=== PATIENT | male | born 1955 | race Caucasian/White ===

== ENCOUNTER 2018-05-03 14:22 | Inpatient (IN) | payer OTHER ==
[~2018-05-03] VITALS: Ht 185.4 cm; Wt 93.5 kg
--- NOTE | ~2018-05-03 | EKG ---
[address], [place] ELECTROCARDIOGRAM REPORT NAME: HERIBERTO MARIN UNIT #: [id number] ROOM: [facility] DOCTOR: CRUZ DRAFT REPORT BIRTHDATE: [birth year] [facility] Test Date: 2018-05-04 Test Time: 10:04:11 Pat Name: HERIBERTO MARIN Department: Room: [place] [id number] Gender: M [employer] Operator: Haydee Thomas : 1955 Requested By: MICHELE ROLLINS Order Number: [id number] Reading MD: Gustavo Jara MD Measurements Intervals [place] Rate: 75 P: 52 OR: 135 QRS: -40 QRSD: 126 T: -53 QT: 427 QTc: 477 Interpretive Statements Sinus rhythm Nonspecific IVCD with LAD Inferolateral infarct, old Electronically Signed On 05-04-2018 13:43:50 PST by Gustavo Jara MD CM:EKGRPT:ELECTROCARDIOGRAM REPORT [id number] MICHELE ROLLINS EPIPHANY DRAFT REPORT MICHELE ROLLINS
[2018-05-03 15:33] VITALS: BP 130/88
--- NOTE | 2018-05-03 15:33 | NUR ---
A 62, admitted to ICCU, under the services of AI Craft DO with a diagnosis of ALCOHOL WITHDRAWAL. Chief complaint is TREMORS. Patient arrived via ambulatory from MD. Monitor applied. Initial assessment completed. Vital signs taken and recorded. AI CRAFT DO notified of admission to the unit. Orders received. See assessment for past medical history, medications and allergies. Patient and/or family oriented to unit Clothing/patient valuable form completed. DAV CORONEL
--- NOTE | 2018-05-03 15:37 | NUR ---
PATIENT MEETS [facility], CIWA-AR= 23. PATIENT IS INTERESTED IN RETURNING TO [facility] ONCE DISCHARGED. [facility] SPOKE WITH MARIZA FROM [facility] AND SHE REPORTS THE PATIENT WILL BE ABLE TO RETURN TO [facility] ONCE DISCHARGED. GEORGE HERNANDEZ MS HOME ORGANIZER
[2018-05-03] MEDS ORDERED: COUMADIN7.5 M1 PO (15:51)
[2018-05-03] MEDS ORDERED: WARFARIN SOD5 MG PO (15:52)
[2018-05-03] MEDS ORDERED: ENTRESTO 49 MG1 EACH PO (15:53)
[2018-05-03] MEDS ORDERED: METOPROLOL SUCC25 M2 PO (15:54)
[2018-05-03] MEDS ORDERED: AMIODARONE HYD200 MG PO (15:54)
[2018-05-03] MEDS ORDERED: LASIX20 MG PO (15:55)
--- NOTE | 2018-05-03 15:55 | NUR ---
INFORMED THAT PATIENT IS HAVING SEVERE TREMORS AT THIS TIME AND IS REQUESTED MEDICATION. STATED HE WOULD PLACE AN ORDER.
[2018-05-03] MEDS ORDERED: LIPITOR10 MG PO (15:56)
[2018-05-03] MEDS ORDERED: NEURONTIN300 MG PO (15:56)
[2018-05-03] MEDS ORDERED: CARVEDILOL6.25 MG PO (15:56)
[2018-05-03] MEDS ORDERED: PANTOPRAZOLE SO40 MG PO (15:57)
[2018-05-03] MEDS ORDERED: ASPIRIN CHEWABL81 MG PO (15:57)
[2018-05-03] MEDS ORDERED: NITROGLYCERIN0.4 MG SL (15:58)
[2018-05-03] MEDS ORDERED: SPIRIVA18 MCG PO (15:59)
--- NOTE | 2018-05-03 16:01 | NUR ---
INFORMED THAT MEDS ARE VERIIFED.
[2018-05-03 16:12] LABS: BASO # 0.1 10*3/uL (0.0-0.1); BASO % 0.6 % (0.0-1.0); EOS # 0.1 10*3/uL (0.0-0.4); EOS % 0.8 % (1.0-4.0); HEMATOCRIT 44.5 % (42.0-52.0); HEMOGLOBIN 14.7 g/dl (14.0-18.0); LYMPH # 3.2 10*3/uL (1.3-4.4); LYMPH % 38.4 % (27.0-41.0); MEAN CELL VOLUME 95.9 fl (80.0-94.0); MEAN CORPUSCULAR HGB 31.7 pg (27.0-31.0); MEAN PLATELET VOLUME 9.6 fl (9.6-12.3); MONO # 0.8 10*3/uL (0.1-1.0); MONO % 9.4 % (3.0-9.0); NEUT # 4.2 10*3/uL (2.3-7.9); NEUT % 50.6 % (47.0-73.0); PLATELET COUNT AUTOMATED 255 10*3/uL (130-400); RED BLOOD COUNT 4.64 10*6/uL (4.50-5.90); WHITE BLOOD COUNT 8.4 10*3/uL (4.8-10.8)
[2018-05-03 16:27] LABS: ALBUMIN 3.4 gm/dl (3.1-4.5); ALKALINE PHOSPHATASE 171 U/L (45-117); BUN 18 mg/dl (7-24); CHLORIDE 109 mmol/L (98-107); CREATININE 0.83 mg/dL (0.70-1.30); POTASSIUM 3.9 mmol/L (3.5-5.1); SGOT/AST 26 IU/L (3-35); SGPT/ALT 30 U/L (12-78); SODIUM 141 mmol/L (136-145)
[2018-05-03 16:29] LABS: INTERNATIONAL NORM RATIO 3.4 (2.0-3.5)
--- NOTE | 2018-05-03 16:30 | NUR ---
MEDICATIONS FROM HOME SENT TO PHARMACY
--- NOTE | 2018-05-03 16:31 | NUR ---
IV ATIVAN GIVEN AT THIS TIME FOR DT. WILL MONITOR.
[2018-05-03 16:37] LABS: ETHYL ALCOHOL < 3.0 mg/dl (<3)
--- NOTE | 2018-05-03 16:50 | NUR ---
[facility], REPORT GIVEN TO GABRIELA.
--- NOTE | 2018-05-03 17:00 | NUR ---
Recieved from w/ alcholic withdrawl symptoms. Tremulous on arrival. Co-Operative with care states tyra all day every day and that the longest he has gone w/o alchol is 1 hour , or when he gets arrested and goes to penitentiary. Dr. Kramer here evaulated pt. and orders were recieved.
[2018-05-03 17:03] VITALS: BP 130/83
--- NOTE | 2018-05-03 18:33 | NUR ---
Pt. is requesting neurontin, Dr. Kramer presents and requested that 2200 does be given early , Neurontin and vistaril were given. pt. took supper well and stated that he was going to take a nap. softly snoring after supper and meds.
--- NOTE | 2018-05-03 19:27 | NUR ---
BENTYL ROBAXIN AND STRAIGHT PO ATIVAN GIVEN PER ORDERS.
[2018-05-03 20:00] VITALS: BP 118/70
--- NOTE | 2018-05-03 20:00 | NUR ---
PATIENT STATES PRN MEDS INEFFECTIVE.
[2018-05-03 20:14] LABS: BILIRUBIN NEGATIVE (NEGATIVE); BLOOD NEGATIVE (NEGATIVE); CLARITY CLEAR (CLEAR); COLOR YELLOW (YELLOW); GLUCOSE NEGATIVE (NEGATIVE); KETONE TRACE (NEGATIVE); LEUKO ESTERASE NEGATIVE (NEGATIVE); NITRITE NEGATIVE (NEGATIVE); SPECIFIC GRAVITY 1.025 (1.005-1.030); UROBILINOGEN 0.2 E.U./dl (0.2-1.0)
[2018-05-03 20:24] LABS: URINE AMPHETAMINES < 1000 (1000ng/ml); URINE BARBITURATES < 200 (200ng/ml); URINE BENZODIAZEPINES > 200 (200ng/ml); URINE CANNABINOIDS (THC) < 50 (50ng/ml); URINE COCAINE < 300 (300ng/ml); URINE METHADONE < 300 (300ng/ml); URINE OPIATES < 300 (300ng/ml)
[2018-05-03 20:26] LABS: URINE PHENCYCLIDINE < 25 (25ng/ml)
[2018-05-03 20:32] LABS: BACTERIA TRACE; CALCIUM OXALATE CRYSTALS 2+; MUCOUS 2+; RBC 0-2 rbc/hpf (0-2)
--- NOTE | 2018-05-03 20:59 | NUR ---
MEDICATED WITH IV ATIVAN PER ORDER. PRN TRAZADONE WELL PER REQUEST.
--- NOTE | 2018-05-03 22:00 | NUR ---
ATIVAN TRAZADONE EFFECTIVE.
[2018-05-04] VITALS: BP 95/56
--- NOTE | 2018-05-04 | NUR ---
PATIENT TOO DROWSY TO TAKE PO ATIVAN.
[2018-05-04 04:00] VITALS: BP 92/64
--- NOTE | 2018-05-04 05:16 | NUR ---
STRAIGHT PO ATIVAN EFFECTIVE GIVEN EARLIER.
[2018-05-04 07:13] LABS: INTERNATIONAL NORM RATIO 1.9 (2.0-3.5)
--- NOTE | 2018-05-04 07:56 | NUR ---
24 HR chart check completed. MIKAL GERBER RN
[2018-05-04 08:00] VITALS: BP 116/74
--- NOTE | 2018-05-04 10:10 | NUR ---
STRAIGHT ORDER ATIVAN EFFECTIVE TO DECREASE DELERIUM TREMORS. FINE HAND TREMORS NOTED WITH C/O ANXIETY. MEDICATED WITH VISTARIL PER PRN ORDER. MIKAL GERBER RN
--- NOTE | 2018-05-04 11:45 | NUR ---
PT RESTING IN BED WITH BOTH EYES CLOSED, NO OBSERVABLE SIGNS OF ANXIETY NOTED AT THIS TIME. VISTARIL EFFECTIVE. MIAKL GERBER RN
[2018-05-04 12:00] VITALS: BP 116/74
--- NOTE | 2018-05-04 14:00 | NUR ---
PT SITTING UP IN BED USING CELL PHONE, TREMORS MINIMAL AT THIS TIME. ATIVAN EFFECTIVE. WILL MONITOR. MIKAL GERBER RN
--- NOTE | 2018-05-04 14:35 | NUR ---
Shift chart check completed.24 HR chart check completed.
[2018-05-04 16:00] VITALS: BP 100/66
--- NOTE | 2018-05-04 16:30 | NUR ---
ON ASSESSMENT PATIENT ALERT, ABLE TO SAY WHERE HE IS AND ASK IF "TIME FOR ANY MEDICINE", "I'M STARTING TO SHAKE". TREMOR NOTED. DENIES SEEING OR HEARING ANYTHING THAT HE DOUBTS IS REAL. MEDICATED WITH HIS SCHEDULED ATIVAN AND PRN DOSE OF ROBAXIN AND VISTARIL. WILL MONITOR FOR WITHDRAWL SYMPTOMS/DT'S. NO SEIZURE ACTIVITY. NO TACHYCARDIA.
[2018-05-04] MEDS ORDERED: B-1100 M1 PO (16:53)
[2018-05-04] MEDS ORDERED: VITAMIN D31000 UNI1 PO (16:54)
[2018-05-04] MEDS ORDERED: TRAZODONE100 MG PO (16:55)
--- NOTE | 2018-05-04 17:00 | NUR ---
VERIFIED WITH PT HIS PHARMACY IS IN [place], [place]. I PHONED THEM, REVIEWED WITH THE PHARMACIST THE MOST RECENT MEDS AND DOSES. MED REC UPDATED TO REFLECT THAT. DR ROLLINS NOTIFIED.
--- NOTE | 2018-05-04 18:12 | NUR ---
PT ATE WELL FOR DINNER. ASSISTED TO A COMFORTABLE POSITION WITH EXTRA PILLOWS. EARLIER MEDS APPEAR EFFECTIVE.
[2018-05-04 20:00] VITALS: BP 104/69
--- NOTE | 2018-05-04 21:17 | NUR ---
MEDICATED WITH STRAIGHT ATIVAN PO AND TRAZADONE PER ORDERS.
--- NOTE | 2018-05-04 22:19 | NUR ---
ATIVAN HELPED FROM EARLIER TRAZADONE NOT REALLY. MEDICATED WITH PRN MOTRIN FOR C/O SORE THROAT.
[2018-05-05] VITALS: BP 88/47
--- NOTE | 2018-05-05 02:56 | NUR ---
24 HR chart check completed.
[2018-05-05 04:00] VITALS: BP 104/71
[2018-05-05 06:20] LABS: INTERNATIONAL NORM RATIO 1.4 (2.0-3.5)
[2018-05-05 08:00] VITALS: BP 119/76
--- NOTE | 2018-05-05 09:19 | NUR ---
ROBAXIN,MOTRIN,VISTARIL PER [facility] FOR BACK PAIN AND ETOH WITHDRAWAL
--- NOTE | 2018-05-05 11:23 | NUR ---
VISTARIL,MOTRIN,ROBAXIN HAVE BEEN EFFECTIVE, PT RESTING QUIETLY WITH NO FURTHER C/O
[2018-05-05 12:00] VITALS: BP 94/67
--- NOTE | 2018-05-05 14:18 | NUR ---
RESTING QUIETLY APPETITE GOOD ONYL CURRENT C/O ARE OF A SORE THROAT FOR WHICH HE IS EATING ICE CREAM AND IT HELPS SLIGHT VISIBLE TREMORS WHEN HANDS ARE EXTENDED IN FRONT OF PT
[2018-05-05 16:00] VITALS: BP 95/77
--- NOTE | 2018-05-05 19:49 | NUR ---
PT. RESTING IN BED, STATED IT IS VERY NOISY IN ICU AND HE NEEDS A ROOM TOMORROW OR HE IS GOING TO LEAVE AMA. SLIGHT TREMORS OF HANDS BILAT. HEP LOCK IN RIGHT ARM. LUNGS DIMINISHED BUT CLEAR BILAT, PULSE OX 97% ON RA. ABDOMEN SOFT, NONDISTENDED AND NORMO. NO PERIPHERAL EDEMA NOTED. PT. GIVEN ROBAXIN FOR STOMACH CRAMPS AND ATIVAN FOR TREMORS/ANXIETY/DT'S ORDERED AT 1944. RICHI GRAYRN
--- NOTE | 2018-05-05 19:53 | NUR ---
PT. REFUSING BATH AT THIS TIME, STATED HE WOULD DO IT IN THE MORNING. RICHI GRAY RN
[2018-05-05 20:00] VITALS: BP 112/80
--- NOTE | 2018-05-05 20:24 | NUR ---
PT. SLEEPING, ROBAXIN AND ATIVAN EFFECTIVE. RICHI GRAY RN
[2018-05-06] VITALS: BP 122/75
--- NOTE | 2018-05-06 00:47 | NUR ---
PT. GIVEN TRAZADONE AT 2117 FOR INSOMNIA, CURRENTLY SLEEPING, TRAZADONE EFFECTIVE. RICHI GRAY RN
--- NOTE | 2018-05-06 01:48 | NUR ---
PT. GIVEN VISTARIL FOR ANXIETY, TRAZADONE FOR INABILITY TO SLEEP, ROBAXIN FOR MUSCLE ACHES AND BENTYL FOR STOMACH CRAMPS. RICHI GRAY RN
[2018-05-06 04:00] VITALS: BP 120/78
--- NOTE | 2018-05-06 05:17 | NUR ---
PT. STATED VISTARIL, DESYREL, ROBAXIN AND BENTYL EFFECTIVE FOR SHORT TIME. ATIVAN GIVEN ORDERED AT 0515 FOR FINE TREMORS AND ANXIETY.
[2018-05-06 05:38] LABS: BASO % 0.3 % (0.0-1.0); EOS # 0.2 10*3/uL (0.0-0.4); EOS % 2.7 % (1.0-4.0); HEMATOCRIT 42.3 % (42.0-52.0); HEMOGLOBIN 13.3 g/dl (14.0-18.0); LYMPH # 3.8 10*3/uL (1.3-4.4); LYMPH % 43.5 % (27.0-41.0); MEAN CELL VOLUME 98.6 fl (80.0-94.0); MEAN CORPUSCULAR HGB CONC 31.4 g/dl (33.0-37.0); MONO # 0.7 10*3/uL (0.1-1.0); MONO % 8.5 % (3.0-9.0); NEUT # 3.9 10*3/uL (2.3-7.9); NEUT % 44.7 % (47.0-73.0); PLATELET COUNT AUTOMATED 217 10*3/uL (130-400); RED BLOOD COUNT 4.29 10*6/uL (4.50-5.90); RED CELL DISTRI WIDTH 15.8 % (0-14.5); WHITE BLOOD COUNT 8.7 10*3/uL (4.8-10.8)
[2018-05-06 06:05] LABS: BUN 13 mg/dl (7-24); CHLORIDE 113 mmol/L (98-107); CREATININE 0.72 mg/dL (0.70-1.30); SODIUM 144 mmol/L (136-145)
--- NOTE | 2018-05-06 06:06 | NUR ---
PT. SLEEPING, ATIVAN EFFECTIVE.
[2018-05-06 06:18] LABS: INTERNATIONAL NORM RATIO 1.4 (2.0-3.5)
[2018-05-06 08:00] VITALS: BP 116/86
--- NOTE | 2018-05-06 10:27 | NUR ---
MOTRIN/ROBAXIN GIVEN FOR BACK PAIN AND VISTARIL FOR ANXIETY PER NV
[2018-05-06] MEDS ORDERED: ATARAX,VISTARIL50 MG PO (11:44)
--- NOTE | 2018-05-06 12:35 | NUR ---
PATIENT HAS BEEN SCHEDULED TO BE ADMITTED TO [facility] IN [place], [place] FOR INPATIENT TREATMENT. [facility] STAFF HAS SCHEDULED THE PATIENT'S TRANSPORTATION. PATIENT IS AWARE AND AGREES TO HIS AFTERCARE PLAN. GEORGE HERNANDEZ MS ASSISTANT OFFSET PRESS OPERATOR
--- NOTE | 2018-05-06 13:56 | NUR ---
DC TO GO TO REHAB IN [place], TAKE BY PERSONAL TRANSPORT
== END 2018-05-06 13:56 | DRG 897 ==
LOC: 4E 14:22 → ICCU 16:28
PROVIDERS: Internal Medicine; Internal Medicine Nephrology; Student in an Organized Health Care Education/Training Program; ADMIT Emergency Medicine
DX: F10.239 Alcohol dependence with withdrawal, unspecified (principal); E44.0 Moderate protein-calorie malnutrition; E87.8 Other disorders of electrolyte and fluid balance, not elsewhere classified; D75.89 Other specified diseases of blood and blood-forming organs; F41.9 Anxiety disorder, unspecified; F17.200 Nicotine dependence, unspecified, uncomplicated; Y90.9 Presence of alcohol in blood, level not specified; E66.3 Overweight; R79.1 Abnormal coagulation profile; R25.9 Unspecified abnormal involuntary movements; E78.5 Hyperlipidemia, unspecified; K21.9 Gastro-esophageal reflux disease without esophagitis; I11.0 Hypertensive heart disease with heart failure; I50.9 Heart failure, unspecified; I25.2 Old myocardial infarction; Z83.3 Family history of diabetes mellitus; Z83.6 Family history of other diseases of the respiratory system; Z79.82 Long term (current) use of aspirin; Z79.899 Other long term (current) drug therapy; Z71.6 Tobacco abuse counseling; Z68.27 Body mass index [BMI] 27.0-27.9, adult